=== PATIENT | male | born 1940 | race Caucasian/White ===

== ENCOUNTER 2018-04-25 10:25 | Emergency (ER) | payer OTHER ==
[~2018-04-25] VITALS: Ht 180.3 cm; Wt 83.9 kg
[2018-04-25] MEDS ORDERED: MOTRIN200 MG PO (11:07)
--- NOTE | 2018-04-25 12:00 | Diagnostic Imaging Report ---
PROCEDURE: Frontal and lateral views of the chest. COMPARISON: None. INDICATIONS: URINATING BLOOD FINDINGS: The right costophrenic angle is partially excluded from the field of view. Lines/tubes: None. Lungs: The lungs are well inflated and clear. There is no evidence of pneumonia or pulmonary edema. Pleura: There is no pleural effusion or pneumothorax. Heart and mediastinum: The cardiomediastinal silhouette is unremarkable. Bones: No acute bony abnormality. IMPRESSION: No acute cardiopulmonary disease. Dictated by: THEE AGUILAR M.D. on 04/25/2018 at 12:06 Electronically approved by: HTEE AGUILAR M.D. on 04/25/2018 at 12:06
[2018-04-25 14:05] LABS: BASOPHILS # (AUTO) 0.1 (0.0-0.1); BASOPHILS % 0.6 % (0.0-1.0); EOSINOPHILS # (AUTO) 0.2 (0.0-0.4); HEMATOCRIT 47.9 % (38.2-49.6); LYMPHOCYTES # (AUTO) 2.1 (1.0-3.2); LYMPHOCYTES % 17.4 % (18.0-39.1); MEAN CORPUSCULAR HEMOGLOBIN 29.9 pg (28-32); MEAN CORPUSCULAR HGB CONC 33.4 g/dL (31-35); MEAN CORPUSCULAR VOLUME 89.4 fL (81-99); MONOCYTES # (AUTO) 0.8 (0.2-0.8); MONOCYTES % 6.5 % (4.4-11.3); NEUTROPHILS # (AUTO) 8.8 (2.1-6.9); NEUTROPHILS % 72.9 % (38.7-80.0); PLATELET COUNT 309 x10e3/uL (140-360); RED BLOOD COUNT 5.36 x10e6/uL (4.3-5.7); RED CELL DISTRIBUTION WIDTH 13.1 % (11.7-14.4)
[2018-04-25 14:10] LABS: INR 1.02; PROTHROMBIN TIME 12.6 seconds (11.9-14.5)
[2018-04-25 14:11] LABS: PARTIAL THROMBOPLASTIN TIME 40.4 seconds (23.8-35.5)
[2018-04-25 14:18] LABS: ALANINE AMINOTRANSFERASE 14 IU/L (0-55); ALBUMIN 4.2 g/dL (3.5-5.0); ALBUMIN/GLOBULIN RATIO 1.1 (0.8-2.0); ALKALINE PHOSPHATASE 65 IU/L (40-150); BLOOD UREA NITROGEN 20 mg/dL (7-26); BUN/CREATININE RATIO 17 (6-25); CALCIUM 10.3 mg/dL (8.4-10.2); CARBON DIOXIDE 27 mmol/L (22-29); CHLORIDE 100 mmol/L (98-107); CREATINE KINASE 159 IU/L (30-200); CREATININE, SERUM 1.16 mg/dL (0.72-1.25); EST GLOMERULAR FILTRATION RATE > 60 ML/MIN (60-); GLUCOSE 93 mg/dL (74-118); SODIUM 140 mmol/L (136-145)
[2018-04-25 14:51] LABS: CLARITY,URINE SL CLOUDY (CLEAR); COLOR,URINE RED (YELLOW); LEUKOCYTE ESTERASE ,URINE 2+ (NEGATIVE); NITRITE,URINE POSITIVE (NEGATIVE); PROTEIN,URINE DIPSTICK 2+ (NEGATIVE)
[2018-04-25 14:52] LABS: BILIRUBIN,URINE NEGATIVE (NEGATIVE); KETONES,URINE NEGATIVE (NEGATIVE); URINE UROBILINOGEN 0.2 mg/dL (0.2 - 1)
[2018-04-25 15:00] LABS: RBC,URINE >50 /HPF (0-5); WBC,URINE (MAN) >50 /HPF (0-5)
[2018-04-25 15:01] LABS: BACTERIA,URINE MANY /HPF
[2018-04-25] MEDS ORDERED: BACTRIM DS TAB1 EACH PO (16:11)
[2018-04-25 16:35] VITALS: BP 142/87
== END 2018-04-25 16:36 | disposition home or self-care (01) ==
LOC: ER 10:25
DX: Z46.6 Encounter for fitting and adjustment of urinary device (principal); N30.91 Cystitis, unspecified with hematuria; F32.9 Major depressive disorder, single episode, unspecified
CPT/HCPCS: 36415; 71046; 80053; 81001; 82550; 82553; 84484; 85025; 85610; 85730; 87086; 87186; 93005; 99284

== ENCOUNTER 2021-04-12 16:03 | Inpatient (IN) | payer MEDICARE, OTHER ==
[~2021-04-12] VITALS: Ht 180.3 cm; Wt 83.9 kg
[~2021-04-12 16:03] MED LIST: BACTRIM DS TAB1 EACH PO; MOTRIN200 MG PO
[2021-04-12] MEDS ORDERED: ACETAMINOPHEN 325 MG TAB PO ONE (17:15)
[2021-04-12] MEDS ORDERED: SODIUM CHLORIDE 0.9% 1000ML 1,000 ML IV ONE ×2 (17:15)
[2021-04-12] MEDS ORDERED: SODIUM CHLORIDE 0.9% 1000ML 2,000 ML ONE (17:24)
[2021-04-12] MEDS: CEFEPIME 1 GM in SODIUM CHLORIDE 0.9% 50ML 50 ML IV SCH (17:27)
[2021-04-12 17:33] LABS: BASOPHILS # (AUTO) 0.1 (0.0-0.1); BASOPHILS % 0.5 % (0.0-1.0); EOSINOPHILS # (AUTO) 0.1 (0.0-0.4); EOSINOPHILS % 0.6 % (0.0-6.0); HEMATOCRIT 43.6 % (38.2-49.6); HEMOGLOBIN 14.4 g/dL (14.0-18.0); LYMPHOCYTES % 16.2 % (18.0-39.1); MEAN CORPUSCULAR HEMOGLOBIN 29.7 pg (28-32); MEAN CORPUSCULAR VOLUME 89.9 fL (81-99); MONOCYTES # (AUTO) 1.2 (0.2-0.8); MONOCYTES % 9.8 % (4.4-11.3); NEUTROPHILS # (AUTO) 9.1 (2.1-6.9); NEUTROPHILS % 72.3 % (38.7-80.0); PLATELET COUNT 333 x10e3/uL (140-360); RED BLOOD COUNT 4.85 x10e6/uL (4.3-5.7); RED CELL DISTRIBUTION WIDTH 12.8 % (11.7-14.4)
[2021-04-12 17:38] LABS: CLARITY,URINE SL CLOUDY (CLEAR); COLOR,URINE AMBER (YELLOW); KETONES,URINE 1+ (NEGATIVE); LEUKOCYTE ESTERASE ,URINE SMALL (NEGATIVE); NITRITE,URINE POSITIVE (NEGATIVE); PROTEIN,URINE DIPSTICK 2+ (NEGATIVE); URINE UROBILINOGEN 1 mg/dL (0.2 - 1)
[2021-04-12 17:48] LABS: AMORPHOUS SEDIMENT,URINE FEW (FEW); BACTERIA,URINE MODERATE /HPF; CALCIUM OXALATE CRYSTALS,UR FEW (FEW); RBC,URINE 21-50 /HPF (0-5)
[2021-04-12 17:49] LABS: YEAST,URINE FEW
[2021-04-12 17:53] LABS: ALBUMIN 3.9 g/dL (3.5-5.0); ALBUMIN/GLOBULIN RATIO 1.3 (0.8-2.0); ANION GAP 16.8 mmol/L (8-16); CALCIUM 9.2 mg/dL (8.4-10.2); CREATININE, SERUM 1.61 mg/dL (0.72-1.25); POTASSIUM 3.8 mmol/L (3.5-5.1)
[2021-04-12] MEDS ORDERED: METOPROLOL TARTRATE INJ 1 MG/ML VIAL IV ONE (18:00)
[2021-04-12 18:01] LABS: CREATINE KINASE MB 5.5 ng/mL (0-5.0)
[2021-04-12] MEDS ORDERED: ACETAMINOPHEN 325 MG TAB PO PRN (18:45)
[2021-04-12] MEDS ORDERED: ONDANSETRON HCL INJ 2MG/ML 2ML 2 MG/ML VIAL IV PRN (18:45)
[2021-04-12] MEDS ORDERED: METOPROLOL TARTRATE INJ 1 MG/ML VIAL IV PRN (18:45)
[2021-04-12 19:52] VITALS: BP 112/70
[2021-04-12 20:23] VITALS: BP 112/70
[2021-04-12] MEDS: SODIUM CHLORIDE 0.9% 1000ML 1,000 ML IV SCH (20:46)
[2021-04-12] MEDS ORDERED: OXYBUTYNIN CHLOR5 MG PO (23:18)
[2021-04-13] VITALS (8 sets, daily range): BP systolic 93–131; BP diastolic 64–90
[2021-04-13] MEDS ORDERED: tylenol #3 PO
[2021-04-13] MEDS ORDERED: BUPROPION HCL100 MG PO
[2021-04-13] MEDS ORDERED: CLONAZEPAM1 MG PO
[2021-04-13] MEDS ORDERED: LEXAPRO20 MG PO
[2021-04-13] MEDS ORDERED: LEVOFLOXACIN250 MG PO
[2021-04-13] MEDS: OXYBUTYNIN CHLORIDE 5 MG TAB PO PRN ×2 (00:12→09:54)
[2021-04-13] MEDS: CEFEPIME 1 GM in SODIUM CHLORIDE 0.9% 50ML 50 ML IV SCH ×3 (02:07→18:33)
[2021-04-13] MEDS ORDERED: TRELEGY ELLIPTA IH (03:55)
[2021-04-13 06:01] LABS: BASOPHILS # (AUTO) 0.1 (0.0-0.1); BASOPHILS % 0.8 % (0.0-1.0); EOSINOPHILS # (AUTO) 0.2 (0.0-0.4); EOSINOPHILS % 2.4 % (0.0-6.0); HEMATOCRIT 37.8 % (38.2-49.6); HEMOGLOBIN 12.2 g/dL (14.0-18.0); LYMPHOCYTES # (AUTO) 2.3 (1.0-3.2); LYMPHOCYTES % 35.8 % (18.0-39.1); MEAN CORPUSCULAR HEMOGLOBIN 29.4 pg (28-32); MEAN CORPUSCULAR HGB CONC 32.3 g/dL (31-35); MEAN CORPUSCULAR VOLUME 91.1 fL (81-99); MONOCYTES # (AUTO) 0.8 (0.2-0.8); MONOCYTES % 12.2 % (4.4-11.3); NEUTROPHILS # (AUTO) 3.1 (2.1-6.9); NEUTROPHILS % 48.5 % (38.7-80.0); PLATELET COUNT 254 x10e3/uL (140-360); RED BLOOD COUNT 4.15 x10e6/uL (4.3-5.7); RED CELL DISTRIBUTION WIDTH 13.1 % (11.7-14.4)
[2021-04-13] MEDS ORDERED: testosterone INJ (06:39)
[2021-04-13 06:40] LABS: ALBUMIN 3.1 g/dL (3.5-5.0); ALBUMIN/GLOBULIN RATIO 1.1 (0.8-2.0); ANION GAP 12.7 mmol/L (8-16); CALCIUM 8.4 mg/dL (8.4-10.2); CREATININE, SERUM 1.16 mg/dL (0.72-1.25); POTASSIUM 3.7 mmol/L (3.5-5.1)
[2021-04-13] MEDS ORDERED: SODIUM CHLORIDE 0.9% 50ML 50 ML ONE (07:55)
[2021-04-13] MEDS ORDERED: DOCUSATE SODIUM 100 MG CAP PO PRN (09:30)
[2021-04-13] MEDS ORDERED: ACETAMINOPHEN 325 MG TAB PO PRN (09:30)
[2021-04-13] MEDS: SODIUM CHLORIDE 0.9% 1000ML 1,000 ML IV SCH ×2 (09:47→21:25)
[2021-04-13 10:39] LABS: CHOL/HDL RATIO 2.9 (3.9-4.7)
[2021-04-13] MEDS ORDERED: PHENYLEPH/SHARK OIL/MO/PETROL 30 GM OINT RC PRN (12:00)
[2021-04-14] VITALS (8 sets, daily range): BP systolic 120–143; BP diastolic 76–92
[2021-04-14] MEDS: OXYBUTYNIN CHLORIDE 5 MG TAB PO PRN ×2 (00:06→12:40)
[2021-04-14] MEDS: CEFEPIME 1 GM in SODIUM CHLORIDE 0.9% 50ML 50 ML IV SCH ×3 (01:14→18:45)
[2021-04-14] MEDS: SODIUM CHLORIDE 0.9% 1000ML 1,000 ML IV SCH ×2 (04:50→19:30)
[2021-04-14] MEDS: CLONAZEPAM 0.5 MG TAB PO SCH (08:55)
[2021-04-14] MEDS: BUPROPION HCL 150 MG TABCR PO SCH (08:55)
[2021-04-14] MEDS: ESCITALOPRAM OXALATE 10 MG TAB PO SCH (08:55)
[2021-04-14] MEDS ORDERED: CHLORASEPTIC SPRAY 177 ML BTL MM PRN (13:30)
[2021-04-15] VITALS: BP 145/89
[2021-04-15] MEDS: CEFEPIME 1 GM in SODIUM CHLORIDE 0.9% 50ML 50 ML IV SCH ×2 (00:58→09:45)
[2021-04-15] MEDS: OXYBUTYNIN CHLORIDE 5 MG TAB PO PRN ×2 (01:24→10:02)
[2021-04-15 04:00] VITALS: BP 141/92
[2021-04-15] MEDS ORDERED: COLACE100 MG PO (07:20)
[2021-04-15] MEDS ORDERED: DIFLUCAN100 MG PO (07:20)
[2021-04-15] MEDS ORDERED: Chloraseptic MM (07:20)
[2021-04-15] MEDS ORDERED: KEFLEX750 MG PO (07:20)
[2021-04-15] MEDS ORDERED: ANUSOL-HC25 MG RC (07:21)
[2021-04-15 08:12] VITALS: BP 148/93
[2021-04-15] MEDS: CLONAZEPAM 0.5 MG TAB PO SCH (09:46)
[2021-04-15] MEDS: BUPROPION HCL 150 MG TABCR PO SCH (09:46)
[2021-04-15] MEDS: ESCITALOPRAM OXALATE 10 MG TAB PO SCH (09:46)
[2021-04-15] MEDS ORDERED: ONDANSETRON HCL 4 MG ORAL DISINTEGRATING TAB PO PRN (10:00)
[2021-04-15 10:46] VITALS: BP 148/93
[2021-04-15 12:27] VITALS: BP 145/98
== END 2021-04-15 13:23 | disposition home or self-care (01) | DRG 698 ==
LOC: ER 17:09 → ERHOLD 18:49 → MED/SURG2 19:53 → OBSVTOIN 04-14 14:15
PROVIDERS: ADMIT Internal Medicine; ATTEND Internal Medicine
DX: T83.518A Infection and inflammatory reaction due to other urinary catheter, initial encounter (principal); A41.9 Sepsis, unspecified organism; R65.20 Severe sepsis without septic shock; N39.0 Urinary tract infection, site not specified; N17.9 Acute kidney failure, unspecified; I48.91 Unspecified atrial fibrillation; Z79.01 Long term (current) use of anticoagulants; N40.1 Benign prostatic hyperplasia with lower urinary tract symptoms; R33.8 Other retention of urine; R81 Glycosuria; Z20.822 Contact with and (suspected) exposure to COVID-19; N32.89 Other specified disorders of bladder
CPT/HCPCS: 36415; 71045; 76770; 80053; 80061; 81001; 82550; 82553; 83036; 83605; 84484; 85025; 87040; 87086; 93005; 96361; 96365; 96366; 99284; G0378; J0692; J7030; U0002

== ENCOUNTER 2025-02-12 06:04 | Inpatient (IN) | payer MEDICARE ==
[~2025-02-12 06:04] MED LIST changes: +ANUSOL-HC25 MG RC; +BUPROPION HCL100 MG PO; +CLONAZEPAM1 MG PO; +COLACE100 MG PO; +Chloraseptic MM; +DIFLUCAN100 MG PO; +FLOMAX0.4 MG PO; +KEFLEX750 MG PO; +LEVOFLOXACIN250 MG PO; +LEXAPRO20 MG PO; +OXYBUTYNIN CHLOR5 MG PO; +REFRESH CELLUV1 EACH; +REFRESH PLUS1 EACH OU; +SYSTANE BALANCE10 ML OU; +TRELEGY ELLIPTA IH; +testosterone INJ; +tylenol #3 PO
[2025-02-12] MEDS: SODIUM CHLORIDE 0.9% 1000ML 1,000 ML ONE (06:42)
[2025-02-12] MEDS: CEFTRIAXONE 1 GM VIAL ONE (06:43)
[2025-02-12] MEDS: GENTAMICIN 80MG/NS 100 ML 200 ML IV ONE (06:43)
[2025-02-12 07:12] LABS: BASOPHILS # (AUTO) 0.1 (0.0-0.1); BASOPHILS % 0.6 % (0.0-1.0); EOSINOPHILS # (AUTO) 0.2 (0.0-0.4); HEMATOCRIT 45.7 % (38.2-49.6); HEMOGLOBIN 15.3 g/dL (14.0-18.0); LYMPHOCYTES # (AUTO) 1.8 (1.0-3.2); LYMPHOCYTES % 23.1 % (18.0-39.1); MEAN CORPUSCULAR HEMOGLOBIN 29.6 pg (28-32); MEAN CORPUSCULAR HGB CONC 33.5 g/dL (31-35); MEAN CORPUSCULAR VOLUME 88.4 fL (81-99); MONOCYTES # (AUTO) 0.8 (0.2-0.8); MONOCYTES % 9.8 % (4.4-11.3); NEUTROPHILS # (AUTO) 4.9 (2.1-6.9); NEUTROPHILS % 63.1 % (38.7-80.0); PLATELET COUNT 234 x10e3/uL (140-360); RED BLOOD COUNT 5.17 x10e6/uL (4.3-5.7); RED CELL DISTRIBUTION WIDTH 13.8 % (11.7-14.4); WHITE BLOOD COUNT 7.72 x10e3/uL (4.8-10.8)
[2025-02-12 07:38] LABS: ANION GAP 15.9 mmol/L (8-16); CALCIUM 9.1 mg/dL (8.4-10.2); CREATININE, SERUM 1.12 mg/dL (0.72-1.25); POTASSIUM 3.9 mmol/L (3.5-5.1)
[2025-02-12] MEDS ORDERED: LIDOCAINE HCL 2% LOCAL INJ 5 ML SDV VIAL INJ ONE (07:51)
[2025-02-12] MEDS ORDERED: PROPOFOL IV EMULSION 10 MG/ML 20 ML VIAL ONE (07:51)
[2025-02-12] MEDS ORDERED: FENTANYL CITRATE/PF 100MCG/2 ML INJ ONE ×2 (07:51→09:15)
[2025-02-12] MEDS ORDERED: ONDANSETRON HCL INJ 2MG/ML 2ML 2 MG/ML VIAL ONE (08:21)
[2025-02-12] MEDS ORDERED: DEXAMETHASONE SOD PHOS INJ 4 MG/ML SDV ONE (08:21)
[2025-02-12] MEDS ORDERED: FAMOTIDINE 20 MG/2 ML VIAL IV ONE (08:21)
[2025-02-12] MEDS ORDERED: EPHEDRINE SULFATE INJ 50 MG/ML VIAL ONE (08:27)
[2025-02-12] MEDS ORDERED: ROCURONIUM BROMIDE 1 ML IV ONE (08:51)
[2025-02-12] MEDS ORDERED: ACETAMINOPHEN 1000 MG/100 ML 100 ML IV ONE (09:03)
[2025-02-12] MEDS ORDERED: GLYCOPYRROLATE INJ 0.2 MG/ML VIAL ONE ×2 (09:45→10:16)
[2025-02-12] MEDS ORDERED: NEOSTIGMINE 1 MG/ML 10ML VIAL ONE (09:45)
[2025-02-12] MEDS ORDERED: FUROSEMIDE INJ 10 MG/ML 4 ML VIAL ONE (09:53)
[2025-02-12] MEDS ORDERED: DIPHENHYDRAMINE HCL 25 MG CAP PO PRN (11:00)
[2025-02-12] MEDS ORDERED: DIPHENHYDRAMINE HCL INJ 50 MG/ML VIAL IM PRN (11:00)
[2025-02-12] MEDS ORDERED: ACETAMINOPHEN/CODEINE 300MG - 30MG TAB PO PRN (11:00)
[2025-02-12] MEDS ORDERED: ACETAMINOPHEN 1000 MG/100 ML IV PRN (11:00)
[2025-02-12] MEDS ORDERED: ONDANSETRON HCL INJ 2MG/ML 2ML 2 MG/ML VIAL IV PRN (11:00)
[2025-02-12 11:22] LABS: BASOPHILS % 0.3 % (0.0-1.0); EOSINOPHILS # (AUTO) 0.1 (0.0-0.4); EOSINOPHILS % 0.4 % (0.0-6.0); HEMATOCRIT 41.9 % (38.2-49.6); HEMOGLOBIN 13.8 g/dL (14.0-18.0); LYMPHOCYTES # (AUTO) 0.6 (1.0-3.2); LYMPHOCYTES % 4.4 % (18.0-39.1); MEAN CORPUSCULAR HEMOGLOBIN 30.1 pg (28-32); MEAN CORPUSCULAR HGB CONC 32.9 g/dL (31-35); MEAN CORPUSCULAR VOLUME 91.5 fL (81-99); MONOCYTES # (AUTO) 0.4 (0.2-0.8); MONOCYTES % 2.4 % (4.4-11.3); NEUTROPHILS # (AUTO) 13.4 (2.1-6.9); NEUTROPHILS % 91.9 % (38.7-80.0); PLATELET COUNT 217 x10e3/uL (140-360); RED BLOOD COUNT 4.58 x10e6/uL (4.3-5.7); RED CELL DISTRIBUTION WIDTH 13.8 % (11.7-14.4); WHITE BLOOD COUNT 14.59 x10e3/uL (4.8-10.8)
[2025-02-12 11:33] LABS: ANION GAP 12.3 mmol/L (8-16); CALCIUM 7.1 mg/dL (8.4-10.2); CREATININE, SERUM 0.97 mg/dL (0.72-1.25); MAGNESIUM 1.6 MG/DL (1.3-2.1); POTASSIUM 4.3 mmol/L (3.5-5.1)
[2025-02-12] MEDS: SODIUM CHLORIDE 0.9% 1000ML 1,000 ML IV SCH (11:49)
[2025-02-12 11:52] VITALS: PULSE 75; RESP 20; O2SAT 97
[2025-02-12] MEDS ORDERED: LEVOTHYROXINE50 MCG PO (12:28)
[2025-02-12 14:55] VITALS: BP 148/90; PULSE 70; RESP 18; TEMP 97.9; O2SAT 100
[2025-02-12] MEDS: PHENAZOPYRIDINE HCL 100 MG TAB PO PRN (16:56)
[2025-02-12] MEDS: SENNA-S TABLET PO SCH (16:56)
[2025-02-12 17:44] VITALS: BP 148/90; PULSE 70; RESP 18; TEMP 97.9; O2SAT 100
[2025-02-12 18:28] VITALS: BP 152/87; PULSE 73; RESP 18; TEMP 95.4; O2SAT 100
[2025-02-12 20:00] VITALS: BP 159/85; PULSE 75; RESP 18; TEMP 98; O2SAT 99
[2025-02-12 23:33] VITALS: PULSE 93; RESP 20; O2SAT 94
[2025-02-13] VITALS (10 sets, daily range): BP systolic 142–192; BP diastolic 84–102; PULSE 85–102; RESP 18–22; TEMP 97.7–98.7; O2SAT 94–100
[2025-02-13 05:48] LABS: BASOPHILS # (AUTO) 0.1 (0.0-0.1); BASOPHILS % 0.4 % (0.0-1.0); EOSINOPHILS % 0.2 % (0.0-6.0); HEMATOCRIT 37.4 % (38.2-49.6); HEMOGLOBIN 12.5 g/dL (14.0-18.0); LYMPHOCYTES # (AUTO) 0.3 (1.0-3.2); LYMPHOCYTES % 2.4 % (18.0-39.1); MEAN CORPUSCULAR HEMOGLOBIN 31.3 pg (28-32); MEAN CORPUSCULAR HGB CONC 33.4 g/dL (31-35); MEAN CORPUSCULAR VOLUME 93.5 fL (81-99); MONOCYTES % 6.9 % (4.4-11.3); NEUTROPHILS # (AUTO) 12.5 (2.1-6.9); NEUTROPHILS % 89.5 % (38.7-80.0); PLATELET COUNT 243 x10e3/uL (140-360); RED CELL DISTRIBUTION WIDTH 14.2 % (11.7-14.4); WHITE BLOOD COUNT 13.97 x10e3/uL (4.8-10.8)
[2025-02-13 06:15] LABS: CALCIUM 7.9 mg/dL (8.4-10.2); CREATININE, SERUM 2.43 mg/dL (0.72-1.25)
[2025-02-14] VITALS (12 sets, daily range): BP systolic 126–170; BP diastolic 69–92; PULSE 69–139; RESP 18–21; TEMP 97.9–98.8; O2SAT 95–99
[2025-02-14 06:14] LABS: ANION GAP 10.4 mmol/L (8-16); CALCIUM 7.7 mg/dL (8.4-10.2); CREATININE, SERUM 1.26 mg/dL (0.72-1.25)
[2025-02-14 06:19] LABS: POTASSIUM 3.4 mmol/L (3.5-5.1)
[2025-02-14 06:48] LABS: BASOPHILS % 0.4 % (0.0-1.0); EOSINOPHILS # (AUTO) 0.2 (0.0-0.4); EOSINOPHILS % 2.1 % (0.0-6.0); HEMATOCRIT 29.7 % (38.2-49.6); LYMPHOCYTES # (AUTO) 1.5 (1.0-3.2); LYMPHOCYTES % 13.9 % (18.0-39.1); MEAN CORPUSCULAR HEMOGLOBIN 30.5 pg (28-32); MEAN CORPUSCULAR HGB CONC 33.3 g/dL (31-35); MEAN CORPUSCULAR VOLUME 91.4 fL (81-99); MONOCYTES # (AUTO) 1.1 (0.2-0.8); MONOCYTES % 9.8 % (4.4-11.3); NEUTROPHILS % 73.5 % (38.7-80.0); RED BLOOD COUNT 3.25 x10e6/uL (4.3-5.7); RED CELL DISTRIBUTION WIDTH 14.3 % (11.7-14.4); WHITE BLOOD COUNT 10.81 x10e3/uL (4.8-10.8)
[2025-02-14 06:53] LABS: HEMOGLOBIN 9.9 g/dL (14.0-18.0); PLATELET COUNT 153 x10e3/uL (140-360)
[2025-02-15] VITALS (10 sets, daily range): BP systolic 135–172; BP diastolic 74–95; PULSE 64–81; RESP 16–20; TEMP 97.6–98.6; O2SAT 18–100
[2025-02-15 06:49] LABS: BASOPHILS % 0.4 % (0.0-1.0); EOSINOPHILS # (AUTO) 0.2 (0.0-0.4); EOSINOPHILS % 3.3 % (0.0-6.0); HEMATOCRIT 28.1 % (38.2-49.6); HEMOGLOBIN 9.5 g/dL (14.0-18.0); LYMPHOCYTES # (AUTO) 1.3 (1.0-3.2); LYMPHOCYTES % 16.9 % (18.0-39.1); MEAN CORPUSCULAR HEMOGLOBIN 30.5 pg (28-32); MEAN CORPUSCULAR HGB CONC 33.8 g/dL (31-35); MEAN CORPUSCULAR VOLUME 90.4 fL (81-99); MONOCYTES # (AUTO) 0.9 (0.2-0.8); MONOCYTES % 11.9 % (4.4-11.3); NEUTROPHILS % 67.2 % (38.7-80.0); PLATELET COUNT 129 x10e3/uL (140-360); RED BLOOD COUNT 3.11 x10e6/uL (4.3-5.7); RED CELL DISTRIBUTION WIDTH 14.1 % (11.7-14.4); WHITE BLOOD COUNT 7.38 x10e3/uL (4.8-10.8)
[2025-02-15 07:16] LABS: ANION GAP 11.1 mmol/L (8-16); CALCIUM 8.3 mg/dL (8.4-10.2); CREATININE, SERUM 0.82 mg/dL (0.72-1.25)
[2025-02-15 07:22] LABS: POTASSIUM 3.1 mmol/L (3.5-5.1)
[2025-02-15] MEDS ORDERED: BUPROPION HCL 100 MG TAB PO SCH (09:00)
[2025-02-15] MEDS: TAMSULOSIN HCL 0.4 MG CAP PO SCH (09:09)
[2025-02-15] MEDS: LEVOTHYROXINE SODIUM 100 MCG TAB PO SCH (09:09)
[2025-02-15] MEDS: ESCITALOPRAM OXALATE 10 MG TAB PO SCH (09:09)
[2025-02-15] MEDS ORDERED: HYDRALAZINE HCL 25 MG TAB PO PRN (09:15)
[2025-02-15] MEDS: AMLODIPINE BESYLATE 5 MG TAB PO ONE (09:27)
[2025-02-15] MEDS: SOD CHL 0.45%/POT CHL 20MEQ 1,000 ML IV SCH (09:28)
[2025-02-15] MEDS: CLONAZEPAM 0.5 MG TAB PO SCH (20:12)
[2025-02-16 03:06] VITALS: BP 141/79; PULSE 73; RESP 18; TEMP 98.5; O2SAT 96
[2025-02-16] MEDS: AMLODIPINE BESYLATE 5 MG TAB PO SCH (06:21)
[2025-02-16 06:58] LABS: BASOPHILS % 0.3 % (0.0-1.0); EOSINOPHILS # (AUTO) 0.3 (0.0-0.4); HEMATOCRIT 29.4 % (38.2-49.6); HEMOGLOBIN 10.2 g/dL (14.0-18.0); LYMPHOCYTES # (AUTO) 1.3 (1.0-3.2); MEAN CORPUSCULAR HEMOGLOBIN 32.3 pg (28-32); MEAN CORPUSCULAR HGB CONC 34.7 g/dL (31-35); MONOCYTES # (AUTO) 1.3 (0.2-0.8); MONOCYTES % 14.9 % (4.4-11.3); NEUTROPHILS # (AUTO) 5.8 (2.1-6.9); NEUTROPHILS % 66.2 % (38.7-80.0); PLATELET COUNT 177 x10e3/uL (140-360); RED BLOOD COUNT 3.16 x10e6/uL (4.3-5.7); RED CELL DISTRIBUTION WIDTH 13.5 % (11.7-14.4); WHITE BLOOD COUNT 8.72 x10e3/uL (4.8-10.8)
[2025-02-16 07:34] LABS: ANION GAP 12.1 mmol/L (8-16); CALCIUM 8.6 mg/dL (8.4-10.2); CREATININE, SERUM 0.89 mg/dL (0.72-1.25)
[2025-02-16 07:36] LABS: POTASSIUM 3.1 mmol/L (3.5-5.1)
[2025-02-16 07:42] VITALS: BP 147/75; PULSE 66; RESP 18; TEMP 98.1; O2SAT 99
[2025-02-16 11:43] VITALS: BP 135/62; PULSE 68; RESP 18; TEMP 97.4; O2SAT 96
[2025-02-16 13:29] VITALS: BP 135/62; PULSE 68; RESP 18; TEMP 97.4; O2SAT 96
[2025-02-16 15:39] VITALS: BP 123/72; PULSE 73; RESP 18; TEMP 98.1; O2SAT 99
== END 2025-02-16 17:23 | disposition home or self-care (01) | DRG 713 ==
LOC: OR 06:04 → PACU V 10:46 → MED/SURG 11:24
PROVIDERS: ADMIT Internal Medicine; ATTEND Internal Medicine
PROC: BT141ZZ Fluoroscopy of Kidneys, Ureters and Bladder using Low Osmolar Contrast (ICD-10-PCS; 2025-02-12)
PROC: 0T9B70Z Drainage of Bladder with Drainage Device, Via Natural or Artificial Opening (ICD-10-PCS; 2025-02-12)
PROC: 0VB08ZZ Excision of Prostate, Via Natural or Artificial Opening Endoscopic (ICD-10-PCS; principal; 2025-02-12 08:12)
PROC: 0T7D8ZZ Dilation of Urethra, Via Natural or Artificial Opening Endoscopic (ICD-10-PCS; 2025-02-12 08:12)
DX: N40.1 Benign prostatic hyperplasia with lower urinary tract symptoms (principal); D62 Acute posthemorrhagic anemia; N13.8 Other obstructive and reflux uropathy; N39.0 Urinary tract infection, site not specified; I16.0 Hypertensive urgency; N35.916 Unspecified urethral stricture, male, overlapping sites; R31.0 Gross hematuria; E87.6 Hypokalemia; I10 Essential (primary) hypertension; E03.9 Hypothyroidism, unspecified; F32.A Depression, unspecified; F41.9 Anxiety disorder, unspecified; Z87.440 Personal history of urinary (tract) infections
CPT/HCPCS: 36415; 71046; 74420; 80048; 83735; 85025; 87086; 88305; 93005; 94660; 94799; C1758; C1769; J0696; J1100; J1308; J1580; J1938; J2003; J2405; J2710; J7030